=== PATIENT | male | born 1975 | race Caucasian/White ===

== ENCOUNTER 2020-04-01 15:46 | Inpatient (IN) | payer OTHER ==
[~2020-04-01] VITALS: Ht 177.8 cm; Wt 99.8 kg
[2020-04-01 16:01] VITALS: BP 122/79
[2020-04-01 16:38] LABS: ABSOLUTE BASOPHILS 0.1 thou/uL (0.0-0.2); ABSOLUTE LYMPHOCYTES 1.3 thou/uL (0.8-5.3); ABSOLUTE MONOCYTES 1.4 thou/uL (0.0-1.2); ABSOLUTE NEUTROPHILS 12.3 thou/uL (1.6-8.1); BASOPHILS 0.7 %; EOSINOPHILS 0.2 %; HEMATOCRIT 41.5 % (42.0-52.0); HEMOGLOBIN 14.3 gm/dL (14.0-18.0); LYMPHOCYTES 8.8 %; MCH 33.4 pg (26.0-34.0); MCHC 34.5 g/dL (28.0-37.0); MCV 96.9 fL (80.0-100.0); MONOCYTES 9.5 %; MPV 8.9 fl. (7.2-11.1); NUCLEATED RBCS 0 /100WBC; PLATELET COUNT* 180 thou/uL (150-400); POLYS 80.8 %; RBC 4.28 mil/uL (4.50-6.00); RDW-CV 15.7 % (10.5-14.5); WBC 15.2 thou/uL (4.0-11.0)
[2020-04-01 16:51] LABS: CALCIUM 7.8 mg/dL (8.5-10.1)
[2020-04-01 16:54] LABS: POTASSIUM 2.9 mmol/L (3.5-5.1)
[2020-04-01 16:55] LABS: ALBUMIN 1.7 g/dL (3.4-5.0); TOTAL BILIRUBIN 4.9 mg/dL (<0.1-1.0); TOTAL PROTEIN 7.5 g/dL (6.4-8.2)
[2020-04-01 17:27] LABS: URINE BLOOD NEGATIVE (Negative); URINE COLOR YELLOW; URINE GLUCOSE-RANDOM NEGATIVE (Negative); URINE KETONES NEGATIVE (Negative); URINE LEUKOCYTES-REFLEX TRACE (Negative); URINE NITRITE-REFLEX NEGATIVE (Negative); URINE PROTEIN TRACE (Negative); URINE SPECIFIC GRAVITY >= 1.030 (1.005-1.030)
[2020-04-01 17:29] LABS: ICTOTEST (BILI CONFIRMATORY) Positive (Negative); URINE BILIRUBIN 2+ (Negative)
[2020-04-01 17:30] LABS: URINE CLARITY HAZY
[2020-04-01 17:39] LABS: SQUAMOUS >10 Many /LPF (0-3)
[2020-04-01 17:40] LABS: BACTERIA-REFLEX None Seen /HPF (None Seen); CASTS None Seen /LPF (None Seen); CRYSTALS None Seen /LPF (None Seen); URINE RBC None Seen /HPF (0-2); URINE WBC-REFLEX >25 Many /HPF (0-5)
[2020-04-01 23:07] VITALS: BP 109/56
[2020-04-01 23:45] VITALS: BP 120/63
[2020-04-02 04:42] VITALS: BP 111/60
[2020-04-02 05:20] LABS: HEMOGLOBIN 12.6 gm/dL (14.0-18.0); MCH 33.4 pg (26.0-34.0); MCHC 34.1 g/dL (28.0-37.0); MCV 97.9 fL (80.0-100.0); MPV 9.1 fl. (7.2-11.1); RBC 3.78 mil/uL (4.50-6.00); RDW-CV 15.8 % (10.5-14.5); WBC 18.2 thou/uL (4.0-11.0)
[2020-04-02 05:39] LABS: CREATININE 4.3 mg/dL (0.6-1.3); POTASSIUM 3.3 mmol/L (3.5-5.1)
[2020-04-02 07:30] VITALS: BP 113/64
[2020-04-02 07:36] LABS: INR 1.4; PROTIME 14.9 Seconds (9.20-11.50)
[2020-04-02 07:44] LABS: ALBUMIN 1.6 g/dL (3.4-5.0); CALCIUM 7.8 mg/dL (8.5-10.1); CREATININE 4.4 mg/dL (0.6-1.3); POTASSIUM 3.6 mmol/L (3.5-5.1); TOTAL BILIRUBIN 5.4 mg/dL (<0.1-1.0); TOTAL PROTEIN 7.2 g/dL (6.4-8.2)
[2020-04-02 08:48] LABS: % SATURATION 51 % (20-39); IRON 74 ug/dL (50-175)
--- NOTE | 2020-04-02 10:59 | EKG ---
[place] [address] ELECTROCARDIOGRAM REPORT Name: MICHEALANUPAM Ryan Room: [address] ADM IN .R.#: [id number] Admission: 04/01/20 Attend Phys: Doug Rodarte Discharge: Date of : 77 Date of Service: 04/01/20 1624 Report #: [id number] THIS REPORT FOR: //name// [facility] ED Test Date: 2020-04-01 Test Time: 16:24:40 Pat Name: ANUPAM BURTON Department: Room: [facility] Gender: M Portfolio Accountant: [facility] : 1975 Requested By: Anthony Avila Order Number: [id number] MD: Cristhian Sanchez Measurements Intervals [place] Rate: 104 P: 40 CT: 123 QRS: -3 QRSD: 108 T: -11 QT: 410 QTc: 540 Interpretive Statements Sinus tachycardia poor r wave progression Borderline T abnormalities, inferior leads Prolonged QT interval No previous ECG available for comparison Electronically Signed On 04-02-2020 10:59:43 [employer] by Cristhian Sanchez [email or web address] <ELECTRONICALLY SIGNED> By: Cristhian Sanchez MD, [facility] 04/02/20 1059 1624 1624 Cristhian Sanchez MD, [facility] /EPI
[2020-04-02 12:00] VITALS: BP 108/62; BP 154/80
[2020-04-02 15:36] LABS: BF RBC 2858 /mm3; TOTAL CELL COUNT 4658 /mm3
[2020-04-02 15:51] LABS: CLARITY HAZY; TOTAL VOLUME 7560 ml
[2020-04-02 16:00] VITALS: BP 97/47
[2020-04-02 16:03] LABS: BF LYMPHOCYTES 17 %; BF MONOCYTES 1 %; BF POLYS 82 %; SOURCE ASCITES
[2020-04-02 19:50] VITALS: BP 101/50
[2020-04-03] VITALS: BP 109/56
[2020-04-03 04:00] VITALS: BP 114/66
[2020-04-03 04:42] LABS: HEMATOCRIT 37.6 % (42.0-52.0); HEMOGLOBIN 12.9 gm/dL (14.0-18.0); MCH 33.2 pg (26.0-34.0); MCHC 34.3 g/dL (28.0-37.0); MCV 96.7 fL (80.0-100.0); MPV 8.7 fl. (7.2-11.1); RBC 3.88 mil/uL (4.50-6.00); RDW-CV 15.4 % (10.5-14.5)
[2020-04-03 04:46] LABS: INR 1.5; PROTIME 15.7 Seconds (9.20-11.50)
[2020-04-03 04:57] LABS: ALBUMIN 1.9 g/dL (3.4-5.0); CALCIUM 8.1 mg/dL (8.5-10.1); CREATININE 4.3 mg/dL (0.6-1.3); MAGNESIUM 2.2 mg/dL (1.8-2.4); POTASSIUM 3.4 mmol/L (3.5-5.1); TOTAL BILIRUBIN 5.4 mg/dL (<0.1-1.0); TOTAL PROTEIN 6.2 g/dL (6.4-8.2)
[2020-04-03 06:06] LABS: HEPATITIS B SURFACE AG Negative (Negative)
[2020-04-03 08:00] VITALS: BP 96/49
[2020-04-03 12:46] VITALS: BP 91/42
[2020-04-03 16:13] VITALS: BP 93/59
[2020-04-03 20:00] VITALS: BP 114/58
[2020-04-04 00:22] VITALS: BP 112/77
[2020-04-04 04:46] LABS: ALBUMIN 2.5 g/dL (3.4-5.0); MAGNESIUM 2.2 mg/dL (1.8-2.4); TOTAL BILIRUBIN 7.7 mg/dL (<0.1-1.0); TOTAL PROTEIN 6.3 g/dL (6.4-8.2)
[2020-04-04 04:47] LABS: CREATININE 3.2 mg/dL (0.6-1.3)
[2020-04-04 04:52] LABS: INR 1.5; PROTIME 15.4 Seconds (9.20-11.50)
[2020-04-04 05:18] VITALS: BP 106/55
[2020-04-04 05:29] LABS: ABSOLUTE BASOPHILS 0.2 thou/uL (0.0-0.2); ABSOLUTE EOSINOPHILS 0.1 thou/uL (0.0-0.7); ABSOLUTE LYMPHOCYTES 1.7 thou/uL (0.8-5.3); ABSOLUTE MONOCYTES 2.5 thou/uL (0.0-1.2); ABSOLUTE NEUTROPHILS 15.2 thou/uL (1.6-8.1); BASOPHILS 0.8 %; EOSINOPHILS 0.4 %; HEMOGLOBIN 12.2 gm/dL (14.0-18.0); LYMPHOCYTES 8.8 %; MCHC 33.9 g/dL (28.0-37.0); MCV 97.4 fL (80.0-100.0); MONOCYTES 12.6 %; MPV 8.6 fl. (7.2-11.1); NUCLEATED RBCS 0 /100WBC; PLATELET COUNT* 161 thou/uL (150-400); POLYS 77.4 %; RDW-CV 15.4 % (10.5-14.5); WBC 19.6 thou/uL (4.0-11.0)
[2020-04-04 08:00] VITALS: BP 113/63
--- NOTE | 2020-04-04 09:27 | CON ---
[address] [address] CONSULTATION Name: ANUPAM BURTON Room: [address] IN .R.#: [id number] Admission: 04/01/20 Attend Phys: Doug Simpson, Discharge: Date of : 77 Report #: [id number] THIS REPORT FOR: cc: ADRIENNE - No family physician/PCP ADRIENNE - No family physician/PCP ~ Racheal oGnzalez MD DATE OF SERVICE: 04/03/2020 NEPHROLOGY CONSULTATION CONSULTING PHYSICIAN: Dr. Simpson. REASON FOR NEPHROLOGY CONSULTATION: Acute kidney injury. REASON FOR ADMISSION: Abdominal pain. HISTORY OF PRESENT ILLNESS: This is a 44-year-old male with history of alcohol use. He drinks about 1/2 to 3/4th pint of fireball everyday, presented with dark stools, nausea, vomiting, abdominal pain and distention. He was found to have ascites. Imaging showed evidence of portal hypertension and cirrhosis. His hemoglobin stayed relatively stable, but he is supposed to get an endoscopy per GI and GI is following him closely. The patient also takes ibuprofen every other day about 2-3 tablets each time and has been doing that for a long time and does not follow with physicians. His creatinine at admission was 4.4 and it has stayed in that range, it is 4.3 today. He also has leukocytosis and he is being treated for SBP, getting antibiotics as per primary team. He is not feeling well. He is very restless. A 7.6 liters of fluid was drained with paracentesis yesterday. ALLERGIES: No known allergies. REVIEW OF SYSTEMS: As mentioned in the history of present illness, otherwise 10-point review of systems done, negative. FAMILY HISTORY: No history of kidney problems in the family that he knows of. HOME MEDICATIONS: None. PAST MEDICAL AND SURGICAL HISTORY: The patient did not come with any medical history from the past. PHYSICAL EXAMINATION: VITAL SIGNS: Blood pressure is 96/49, respiratory rate is 18, pulse rate 99, temperature is 36.4, pulse ox is 95% on 3 liters of [place] [address] CONSULTATION Name: ANUPAM BURTON Room: [address] IN [facility]#: [id number] Admission: 04/01/20 Attend Phys: Doug Simpson, Discharge: Date of : 77 Report #: [id number] GENERAL: He was very drowsy for me, was able to wake up, but was very restless and does not feel comfortable. HEAD AND THROAT: Atraumatic and normocephalic. Conjunctivae normal. He does have scleral icterus. EARS, NOSE, AND THROAT: Normal ears and nose. Mucous membranes are dry. NECK: There was no JVD. CHEST: Bilaterally clear to auscultation anteriorly. No crackles or wheezing. CARDIOVASCULAR: S1, S2 normal. No murmurs. ABDOMEN: Soft, distended and right upper quadrant tenderness and soft otherwise. LOWER EXTREMITIES: There is no edema. SKIN: Spider nevi all over. NEUROLOGIC: Neurological function is currently drowsy, but he is able to wake up for me. PSYCHIATRIC: Not able to assess. LABORATORY DATA: WBC 21,000, hemoglobin 12.9, platelet count is 175. Sodium 131, potassium is 3.4, BUN is 80, creatinine is 4.3 and other labs were reviewed. IMAGING: Chest x-ray, renal ultrasound and abdomen CT reports were reviewed. ASSESSMENT: 1. Acute kidney injury in the setting of newly diagnosed cirrhosis, alcohol dependence, possible GI bleed and consistent use of NSAIDs. Baseline creatinine is not known. The patient has not been following with physicians and his creatinine has been running 4.3 to 4.4. Hepatorenal syndrome could not be ruled out. He is currently getting albumin. UA did not show any blood. Just trace amount of protein. 2. Hyponatremia in the setting of liver cirrhosis. 3. Hypokalemia. 4. SBP being treated by primary team, large volume paracentesis done on 04/02/2020; 7.6 liters removed. 5. Dark stools, the patient to get an endoscopy. GI is following. 6. Cirrhosis, portal hypertension, alcohol dependence, not a candidate for liver transplant at this time. 7. Right inguinal hernia. Surgery cannot be done because of ascites and high risk. PLAN: 1. From nephrology standpoint, I agree with giving him albumin. I will stop his normal saline because that will increase his ascites. If he does not respond much to albumin, this is in all likelihood hepatorenal syndrome. I agree with octreotide as well. I agree with GI assessment. [address] [place] [address] CONSULTATION Name: ANUPAM BURTON Room: [address] IN M.R.#: [id number] Admission: 04/01/20 Attend Phys: Doug Simpson, Discharge: Date of : 77 Report #: [id number] 1. For his potassium, I have ordered some replacement. I will put him on a fluid restriction at 1.5 liters a day to help with his hyponatremia. 2. Avoid all NSAIDs and nephrotoxic agents and IV contrast. 3. We will continue to follow with you. If his kidney function worsens and he is in need for dialysis, he is currently not a candidate for dialysis because he is not a candidate for liver transplant. Thank you for this consultation. We will continue to follow with you. <ELECTRONICALLY SIGNED> By: Racheal Gonzalez MD 04/04/20 0927 0936 [id number] Gonzalez MD /nt
[2020-04-04 11:07] LABS: BODY FLUID PROTEIN 1.4 g/dL (())
[2020-04-04 11:58] VITALS: BP 104/59
--- NOTE | 2020-04-04 13:52 | 2DMMODE ---
[place] [address] 2 D/M-MODE ECHOCARDIOGRAM Name: BURTONANUPAM Room: [address] IN [facility]#: [id number] Admission: 04/01/20 Attend Phys: Doug Rodarte Discharge: Date of : 77 Date of Service: 04/04/20 1352 Report #: [id number] THIS REPORT FOR: cc: FAM - No family physician/PCP FAM - No family physician/PCP Andres Pascual MD [facility] ~ APPROVED REPORT Study performed: 04/04/2020 11:25:43 EXAM: Comprehensive 2D, Doppler, and color-flow Echocardiogram Patient Location: In-Patient Room #: [facility] Status: routine BSA: 2.15 HR: 100 bpm Rhythm: NSR Other Information Study Quality: Good Indications Congestive Heart Failure 2D Dimensions IVSd: 11.47 (7-11mm) LVOT Diam: 22.93 (18-24mm) LVDd: 53.51 mm PWd: 8.54 (7-11mm) Ascending Ao: 32.60 (22-36mm) LVDs: 34.03 (25-40mm) Aortic Root: 32.74 mm Volumes Left Atrial Volume (Systole) LA ESV Index: 31.60 mL/m2 Aortic Valve AoV Peak Jerson.: 1.80 m/s AO Peak Gr.: 12.91 mmHg LVOT Max P.85 mmHg AO Mean Gr.: 8.56 mmHg LVOT Mean P.39 mmHg LVOT Max V: 1.57 m/s AO V2 VTI: 30.27 cm LVOT Mean V: 0.94 m/s ENDY (VTI): 3.81 cm2 LVOT V1 VTI: 27.97 [place] [address] 2 D/M-MODE ECHOCARDIOGRAM Name: ANUPAM BURTON Room: [address] IN .R.#: [id number] Admission: 04/01/20 Attend Phys: Doug Rodarte Discharge: Date of : 77 Date of Service: 04/04/20 1352 Report #: [id number] Mitral Valve E/A Ratio: 1.43 MV Decel. Time: 223.77 ms MV E Max Jerson.: 0.98 m/s MV PHT: 64.89 ms MVA (PHT): 3.39 cm2 TDI E/Lateral E': 5.16 E/Medial E': 6.53 Medial E' Jerson.: 0.15 m/s Lateral E' Jerson.: 0.19 m/s Pulmonary Valve PV Peak Jerson.: 1.27 m/s PV Peak Gr.: 6.40 mmHg Tricuspid Valve RAP Estimate: 5.00 mmHg TR Peak Gr.: 15.88 mmHg RVSP: 20.00 mmHg PA Pressure: 20.00 mmHg Left Ventricle The left ventricle is normal size. There is normal LV segmental wall motion. There is normal left ventricular wall thickness. Left ventricular systolic function is normal. LVEF is 60-65%. The left ventricular diastolic function is normal. Right Ventricle The right ventricle is normal size. The right ventricular systolic function is normal. Atria The left atrium size is normal. The right atrium size is normal. Aortic Valve The aortic valve is normal in structure. No aortic regurgitation is present. There is no aortic valvular stenosis. Mitral Valve The mitral valve is normal in structure. Trace mitral regurgitation. No evidence of mitral valve stenosis. Tricuspid Valve The tricuspid valve is normal in structure. No pulmonary hypertension. Trace [place] [address] 2 D/M-MODE ECHOCARDIOGRAM Name: BURTONANUPAM Room: [address] IN [facility]#: [id number] Admission: 04/01/20 Attend Phys: Doug Rodarte Discharge: Date of : 77 Date of Service: 04/04/20 1352 Report #: [id number] Pulmonic Valve The pulmonary valve is normal in structure. There is no pulmonic valvular regurgitation. Great Vessels The aortic root is normal in size. IVC is not well visualized. Pericardium There is no pericardial effusion. <Conclusion> The left ventricle is normal size. There is normal left ventricular wall thickness. Left ventricular systolic function is normal. LVEF is 60-65%. The left ventricular diastolic function is normal. Trace mitral regurgitation. No pulmonary hypertension. Trace tricuspid regurgitation. <ELECTRONICALLY SIGNED> By: Andres Pascual MD, FACC 04/04/20 1352 1352 135 Andres Pascual MD, FACC /INF
[2020-04-04 15:24] LABS: URINE BILIRUBIN NEGATIVE (Negative); URINE BLOOD 2+ (Negative); URINE CLARITY CLEAR; URINE COLOR YELLOW; URINE GLUCOSE-RANDOM NEGATIVE (Negative); URINE KETONES NEGATIVE (Negative); URINE LEUKOCYTES-REFLEX TRACE (Negative); URINE NITRITE-REFLEX NEGATIVE (Negative); URINE PROTEIN NEGATIVE (Negative); URINE UROBILINOGEN 0.2 E.U./dl (0.2-1.0)
[2020-04-04 15:30] LABS: SQUAMOUS 0-3 Few /LPF (0-3); URINE RBC 3-10 Few /HPF (0-2); URINE WBC-REFLEX 0-5 Rare /HPF (0-5)
[2020-04-04 15:31] LABS: CASTS None Seen /LPF (None Seen); CRYSTALS None Seen /LPF (None Seen); MUCUS 0-3 Light strn/LPF (None Seen)
[2020-04-04 16:30] VITALS: BP 110/66
[2020-04-04 18:16] LABS: CALCIUM 8.4 mg/dL (8.5-10.1); CREATININE 2.2 mg/dL (0.6-1.3); MAGNESIUM 2.1 mg/dL (1.8-2.4); POTASSIUM 3.1 mmol/L (3.5-5.1)
[2020-04-04 19:50] VITALS: BP 120/60
[2020-04-05 00:09] VITALS: BP 120/76
[2020-04-05 04:14] LABS: ABSOLUTE BASOPHILS 0.1 thou/uL (0.0-0.2); ABSOLUTE EOSINOPHILS 0.1 thou/uL (0.0-0.7); ABSOLUTE LYMPHOCYTES 1.5 thou/uL (0.8-5.3); ABSOLUTE MONOCYTES 2.3 thou/uL (0.0-1.2); ABSOLUTE NEUTROPHILS 13.3 thou/uL (1.6-8.1); BASOPHILS 0.8 %; EOSINOPHILS 0.4 %; HEMOGLOBIN 12.2 gm/dL (14.0-18.0); LYMPHOCYTES 8.9 %; MCH 33.4 pg (26.0-34.0); MCHC 33.9 g/dL (28.0-37.0); MCV 98.6 fL (80.0-100.0); MONOCYTES 13.3 %; MPV 8.7 fl. (7.2-11.1); NUCLEATED RBCS 0 /100WBC; PLATELET COUNT* 114 thou/uL (150-400); POLYS 76.6 %; RBC 3.65 mil/uL (4.50-6.00); RDW-CV 15.3 % (10.5-14.5); WBC 17.3 thou/uL (4.0-11.0)
[2020-04-05 04:44] LABS: ALBUMIN 3.1 g/dL (3.4-5.0); CALCIUM 8.5 mg/dL (8.5-10.1); CREATININE 1.8 mg/dL (0.6-1.3); PHOSPHORUS* 3.4 mg/dL (2.5-4.9); TOTAL BILIRUBIN 9.9 mg/dL (<0.1-1.0); TOTAL PROTEIN 6.4 g/dL (6.4-8.2)
[2020-04-05 04:48] VITALS: BP 130/77
[2020-04-05 07:30] VITALS: BP 107/60
[2020-04-05 10:54] LABS: BF RBC 39752 /mm3; TOTAL CELL COUNT 1805 /mm3
[2020-04-05 10:54] LABS: CALCIUM 8.8 mg/dL (8.5-10.1); CREATININE 1.4 mg/dL (0.6-1.3); POTASSIUM 3.1 mmol/L (3.5-5.1)
[2020-04-05 10:55] LABS: TOTAL VOLUME 2300 ml
[2020-04-05 10:56] LABS: CLARITY TURBID; SOURCE ASCITES
[2020-04-05 10:58] LABS: MAGNESIUM 1.9 mg/dL (1.8-2.4); PHOSPHORUS* 3.2 mg/dL (2.5-4.9)
[2020-04-05 11:00] VITALS: BP 146/78
[2020-04-05 11:19] LABS: BF LYMPHOCYTES 25 %; BF MONOCYTES 4 %; BF POLYS 71 %
[2020-04-05 16:00] VITALS: BP 143/71
[2020-04-05 20:00] VITALS: BP 105/51
[2020-04-06] VITALS: BP 110/62
[2020-04-06 04:00] VITALS: BP 126/73
[2020-04-06 04:18] LABS: ABSOLUTE BASOPHILS 0.1 thou/uL (0.0-0.2); ABSOLUTE EOSINOPHILS 0.1 thou/uL (0.0-0.7); ABSOLUTE LYMPHOCYTES 1.6 thou/uL (0.8-5.3); ABSOLUTE NEUTROPHILS 12.7 thou/uL (1.6-8.1); BASOPHILS 0.4 %; EOSINOPHILS 0.8 %; HEMATOCRIT 36.6 % (42.0-52.0); HEMOGLOBIN 12.4 gm/dL (14.0-18.0); LYMPHOCYTES 9.9 %; MCH 33.4 pg (26.0-34.0); MCHC 33.8 g/dL (28.0-37.0); MCV 98.8 fL (80.0-100.0); MPV 8.9 fl. (7.2-11.1); NUCLEATED RBCS 0 /100WBC; PLATELET COUNT* 89 thou/uL (150-400); POLYS 76.9 %; RBC 3.71 mil/uL (4.50-6.00); RDW-CV 15.9 % (10.5-14.5); WBC 16.5 thou/uL (4.0-11.0)
[2020-04-06 04:49] LABS: ALBUMIN 3.5 g/dL (3.4-5.0); CALCIUM 8.1 mg/dL (8.5-10.1); MAGNESIUM 1.6 mg/dL (1.8-2.4); POTASSIUM 3.2 mmol/L (3.5-5.1); TOTAL BILIRUBIN 10.7 mg/dL (<0.1-1.0); TOTAL PROTEIN 6.9 g/dL (6.4-8.2)
[2020-04-06 08:30] VITALS: BP 112/68
[2020-04-06 08:45] VITALS: BP 112/68
[2020-04-06 11:00] VITALS: BP 126/73
[2020-04-06 20:00] VITALS: BP 145/81
[2020-04-07] VITALS: BP 99/56
[2020-04-07 04:00] VITALS: BP 116/75
[2020-04-07 08:00] VITALS: BP 113/69
[2020-04-07 11:50] LABS: ABSOLUTE LYMPHOCYTES 0.7 thou/uL (0.8-5.3); ABSOLUTE MONOCYTES 2.2 thou/uL (0.0-1.2); ABSOLUTE NEUTROPHILS 14.7 thou/uL (1.6-8.1); BASOPHILS 0.2 %; HEMATOCRIT 33.4 % (42.0-52.0); HEMOGLOBIN 11.4 gm/dL (14.0-18.0); LYMPHOCYTES 4.1 %; MCH 33.8 pg (26.0-34.0); MCHC 34.1 g/dL (28.0-37.0); MCV 99.2 fL (80.0-100.0); MONOCYTES 12.6 %; MPV 9.6 fl. (7.2-11.1); NUCLEATED RBCS 0 /100WBC; PLATELET COUNT* 61 thou/uL (150-400); POLYS 83.1 %; RBC 3.37 mil/uL (4.50-6.00); RDW-CV 15.7 % (10.5-14.5); WBC 17.7 thou/uL (4.0-11.0)
[2020-04-07 11:57] LABS: CALCIUM 8.5 mg/dL (8.5-10.1); POTASSIUM 3.2 mmol/L (3.5-5.1)
[2020-04-07 12:00] VITALS: BP 119/46
[2020-04-07 16:00] VITALS: BP 122/75
[2020-04-07 20:00] VITALS: BP 110/67
[2020-04-07 21:09] LABS: URINE BILIRUBIN 1+ (Negative); URINE BLOOD TRACE (Negative); URINE CLARITY CLEAR; URINE COLOR DARK YELLOW; URINE GLUCOSE-RANDOM NEGATIVE (Negative); URINE KETONES NEGATIVE (Negative); URINE LEUKOCYTES-REFLEX NEGATIVE (Negative); URINE NITRITE-REFLEX NEGATIVE (Negative); URINE PROTEIN TRACE (Negative); URINE SPECIFIC GRAVITY 1.015 (1.005-1.030); URINE UROBILINOGEN 0.2 E.U./dl (0.2-1.0)
[2020-04-07 21:11] LABS: ICTOTEST (BILI CONFIRMATORY) Positive (Negative)
[2020-04-08] VITALS: BP 106/61
[2020-04-08 04:00] VITALS: BP 117/73
[2020-04-08 04:23] LABS: HEMATOCRIT 34.3 % (42.0-52.0); HEMOGLOBIN 11.6 gm/dL (14.0-18.0); MCH 33.8 pg (26.0-34.0); MCHC 33.9 g/dL (28.0-37.0); MCV 99.6 fL (80.0-100.0); MPV 9.3 fl. (7.2-11.1); RBC 3.44 mil/uL (4.50-6.00); WBC 18.1 thou/uL (4.0-11.0)
[2020-04-08 04:47] LABS: ALBUMIN 3.6 g/dL (3.4-5.0); CREATININE 0.9 mg/dL (0.6-1.3); MAGNESIUM 1.3 mg/dL (1.8-2.4); POTASSIUM 3.4 mmol/L (3.5-5.1); TOTAL BILIRUBIN 9.2 mg/dL (<0.1-1.0); TOTAL PROTEIN 6.9 g/dL (6.4-8.2)
[2020-04-08 08:00] VITALS: BP 100/53
[2020-04-08 11:40] VITALS: BP 123/68
[2020-04-08 20:00] VITALS: BP 114/65
[2020-04-08 23:44] VITALS: BP 135/76
[2020-04-09 04:39] LABS: HEMATOCRIT 34.5 % (42.0-52.0); HEMOGLOBIN 11.8 gm/dL (14.0-18.0); MCH 33.7 pg (26.0-34.0); MCV 99.1 fL (80.0-100.0); MPV 10.1 fl. (7.2-11.1); RBC 3.49 mil/uL (4.50-6.00); RDW-CV 16.1 % (10.5-14.5); WBC 16.6 thou/uL (4.0-11.0)
[2020-04-09 05:01] LABS: ALBUMIN 3.3 g/dL (3.4-5.0); CALCIUM 7.8 mg/dL (8.5-10.1); CREATININE 0.8 mg/dL (0.6-1.3); MAGNESIUM 1.2 mg/dL (1.8-2.4); POTASSIUM 3.3 mmol/L (3.5-5.1); TOTAL BILIRUBIN 9.6 mg/dL (<0.1-1.0); TOTAL PROTEIN 6.5 g/dL (6.4-8.2)
[2020-04-09 08:00] VITALS: BP 105/50
--- NOTE | 2020-04-09 12:07 | PATH ---
[address] [address] PATHOLOGY RPT PROCEDURE Name: ANUPAM BURTON Room: [address] IN [facility]#: [id number] Admission: 04/01/20 Date of : 77 Discharge: Report #: [id number] Path Case #: [id number] Note [facility] Accession Number: [id number] TESTS RESULT FLAG UNITS REF RANGE LAB Clinician Provided Cytology Information No. of containers..01 Other (Miscellaneous) Source: PERITONEAL FLUID DIAGNOSIS: 02 PERITONEAL FLUID NEGATIVE FOR MALIGNANT CELLS. LOW CELLULARITY WITH RARE MESOTHELIAL CELLS AND PREDOMINANTLY RBCs AND INFLAMMATORY CELLS. THIS INTERPRETATION INCLUDES EVALUATION OF A CELL BLOCK. Signed out by: 02 Carlos Mena MD, Pathologist NPI- [id number] Performed by: 01 Kelly Ward, Before And After School Daycare Worker ([facility]) Gross description: 01 5ML, YELLOW/RED, 1TP 1CB /LCS 04/08/2020 0730 Local FLAG LEGEND: L-Low Normal,H-High Normal,LL-Alert Low,HH-Alert High <-Panic Low,>-Panic High,A-Abnormal,AA-Critical Abnormal Performed at: 01 [facility] [address] [place] [address] Aly Powell MD, [address] [address] Carlos Mena MD, Specimen Comment: A courtesy copy of this report has been sent to [phone] Specimen Comment: Report sent to Performed at: 01 [facility] [address], [place], [place] [id number] MD Aly Powell MD Phone: [phone]
--- NOTE | 2020-04-09 14:51 | CON ---
[address] [address] CONSULTATION Name: ANUPAM BURTON Room: [address] IN M.R.#: [id number] Admission: 04/01/20 Attend Phys: Doug Simpson, Discharge: Date of : 77 Report #: [id number] THIS REPORT FOR: cc: ADRIENNE - No family physician/PCP ADRIENNE - No family physician/PCP ~ Vitor Palacio MD DATE OF SERVICE: 04/04/2020 REQUESTING PHYSICIAN: Doug Simpson MD INDICATION FOR CONSULTATION: Respiratory failure/suspicion of interstitial lung disease. HISTORY OF PRESENT ILLNESS: This is a 44-year-old gentleman, past medical history is unremarkable. The patient, however, has a history of heavy alcohol intake as well as smoking and it does appear to me that the patient has chronic liver disease/cirrhosis as well as COPD, previously undiagnosed. He was actively smoking and having significant amounts of alcohol until just a few days ago. The patient is now admitted with abdominal pain. He also did have nausea, vomiting and diarrhea initially, he has marked abdominal distention. He has had some blood in the stool as well. The patient was evaluated by GI as well as the Nephrology service. He was noted to have hepatorenal syndrome. He is in acute renal failure, creatinine has ranged from 4.0-3.2. He has had large volume paracentesis performed. He has also been treated with albumin and did receive IV fluids as well initially The patient has had increase in shortness of breath. Currently, he is requiring supplemental oxygen to maintain O2 saturation. He at the time of my evaluation was saturating 90% on 2.5 liters oxygen via nasal cannula. The patient has been needing significant amounts of Ativan as well and the patient was somnolent at the time of my evaluation. He therefore was not able to provide a further history or review of systems. PAST MEDICAL HISTORY: He did not report any past medical history; however, please see discussion above. SOCIAL HISTORY: Heavy alcohol intake. Active smoker, has been smoking for several decades. No known history of illegal drug use. CURRENT MEDICATIONS: List in [employer] reviewed. HOME MEDICATIONS: [place] [address] CONSULTATION Name: ANUPAM BURTON Connor Room: [address]#: [id number] Admission: 04/01/20 Attend Phys: Doug Simpson, Discharge: Date of : 77 Report #: [id number] FAMILY HISTORY: No pertinent family history. ALLERGIES: No known drug allergies. PHYSICAL EXAMINATION: GENERAL: He is markedly somnolent. He is arousable. VITAL SIGNS: Has a pulse of 98 and a blood pressure of 104/59. He was saturating 90% on 2.5 liters nasal cannula. He was mildly tachypneic with respiratory rate around 22-24. He has a low-grade temperature of 37.2. HEENT: Head is normocephalic and atraumatic. Pupils are equal and reactive. There is no throat erythema. There is no thrush in his throat. NECK: Does not show raised JVP, asymmetry, mass or lymph nodes. CHEST: Symmetrical expansion on inspection and palpation. On auscultation, breath sounds are bilaterally equal, but decreased. I do not hear any added sounds. HEART: Regular. There is no murmur. ABDOMEN: Markedly distended. There is diffuse discomfort on palpation of the abdomen. EXTREMITIES: Lower extremities show no edema, no calf tenderness. SKIN: Dry and intact. NEUROLOGICAL: Mental status as above. He moves all extremities bilaterally equally and spontaneously. I did not identify any focal deficit. LABORATORY DATA: The patient's chest x-rays from yesterday is reviewed. Certainly interstitial lung disease can also give this picture; however, it appears to me that it is more likely that this is secondary to mild increase in pulmonary vascular congestion. It is possible that the patient also has some pleural effusions, which are not fully evident on this x-ray. At least there is a small pleural effusion on the left side. I do not identify one on the right, but it will still be possible. The patient's lab work is in [employer] and is reviewed. ASSESSMENT AND PLAN: 1. Acute hypoxemic respiratory failure. The patient has previously not require oxygen and is now saturating 90% on 2.5 liters nasal cannula. I feel that the primary etiology of the patient's respiratory failure is severe ascites. Certainly there is mild increase in pulmonary vascular congestion on the chest x-ray as well; however, I understand the patient needs to be kept well resuscitated and I do not feel that this is playing a major role in his respiratory status. It also does appear that he likely has underlying chronic obstructive pulmonary disease. Further, the patient has been requiring Ativan for alcohol withdrawal, which is also contributing to his respiratory failure and interstitial lung disease will be possible; however, it to me appears to be [address] [address] CONSULTATION Name: ANUPAM BURTON Room: [address] IN M.R.#: [id number] Admission: 04/01/20 Attend Phys: Doug Simpson, Discharge: Date of : 77 Report #: [id number]. 2. Severe ascites as this is compromising his respiratory status, I did call and discuss with Dr. Gonzalez and we both agreed that the patient will benefit from a paracentesis. I did go ahead and therefore, requested the same for tomorrow. We will check with the GI service if repeat analysis on the ascitic fluid is desired. The patient is getting 25 grams of albumin q.6 hours already. I ordered an additional 25 grams for when he has a paracentesis. Depending on the amount of fluid that is removed, it is possible that the patient needs a larger amount of albumin when the paracentesis is performed. 3. Mild fluid overload/acute renal failure. I do not feel that fluid overload by itself is playing a major role in his respiratory failure. It is more the ascites. Therefore, I agree with keeping him well hydrated, considering that he is in acute renal failure. Defer management of a scheduled albumin to the Nephrology service. I suspect that his potassium will still below this evening. If I will go ahead and repeat labs this evening and if the potassium is low, then I will defer to the Nephrology if it is replaced a further. 4. Chronic liver disease/cirrhosis/possible spontaneous bacterial peritonitis. The patient is on both Zosyn and meropenem. I would defer how broadly we cover to the other services; however, it did not appear that we need to continue both so I discontinued Zosyn for now. 5. Alcohol withdrawal. Ativan is playing a role in compromising his respiratory status; however, I feel that he does need it at this time due to alcohol withdrawal, should his respiratory status worsen, then we potentially could transfer him to the ICU in that case and start a Precedex drip instead. 6. Hypotension. Albumin is already ordered by other services as above. We will also go ahead and start him on midodrine. 7. Rule out interstitial lung disease/possible small pleural effusions, suspicion of interstitial lung disease is low. Potentially a CT chest can be considered later. I did order a chest x-ray as above. Thanks for this consultation. <ELECTRONICALLY SIGNED> By: Vitor Palacio MD 04/09/20 1451 1548 1630Vitor Palacio MD /nt
[2020-04-09 16:58] VITALS: BP 125/71
[2020-04-09 20:00] VITALS: BP 113/62
[2020-04-09 20:00] LABS: CALCIUM 7.9 mg/dL (8.5-10.1); CREATININE 0.6 mg/dL (0.6-1.3); MAGNESIUM 1.7 mg/dL (1.8-2.4); POTASSIUM 3.4 mmol/L (3.5-5.1)
[2020-04-10 06:17] LABS: ABSOLUTE EOSINOPHILS 0.1 thou/uL (0.0-0.7); ABSOLUTE LYMPHOCYTES 1.9 thou/uL (0.8-5.3); ABSOLUTE MONOCYTES 1.5 thou/uL (0.0-1.2); ABSOLUTE NEUTROPHILS 13.1 thou/uL (1.6-8.1); BASOPHILS 0.3 %; EOSINOPHILS 0.9 %; HEMATOCRIT 34.8 % (42.0-52.0); HEMOGLOBIN 11.7 gm/dL (14.0-18.0); LYMPHOCYTES 11.1 %; MCH 33.4 pg (26.0-34.0); MCHC 33.5 g/dL (28.0-37.0); MCV 99.6 fL (80.0-100.0); MONOCYTES 9.2 %; NUCLEATED RBCS 0 /100WBC; PLATELET COUNT* 81 thou/uL (150-400); POLYS 78.5 %; RBC 3.49 mil/uL (4.50-6.00); RDW-CV 16.2 % (10.5-14.5); WBC 16.7 thou/uL (4.0-11.0)
[2020-04-10 06:30] LABS: ALBUMIN 3.2 g/dL (3.4-5.0); CALCIUM 7.8 mg/dL (8.5-10.1); CREATININE 0.6 mg/dL (0.6-1.3); MAGNESIUM 1.7 mg/dL (1.8-2.4); POTASSIUM 3.8 mmol/L (3.5-5.1); TOTAL BILIRUBIN 10.4 mg/dL (<0.1-1.0); TOTAL PROTEIN 6.2 g/dL (6.4-8.2)
[2020-04-10 08:47] VITALS: BP 113/60
[2020-04-10 16:45] VITALS: BP 131/76
[2020-04-10 20:55] VITALS: BP 104/52
[2020-04-11 00:10] VITALS: BP 109/62
[2020-04-11 04:30] LABS: HEMATOCRIT 32.8 % (42.0-52.0); HEMOGLOBIN 11.1 gm/dL (14.0-18.0); MCH 33.8 pg (26.0-34.0); MCHC 33.9 g/dL (28.0-37.0); MCV 99.6 fL (80.0-100.0); MPV 9.6 fl. (7.2-11.1); RBC 3.29 mil/uL (4.50-6.00); RDW-CV 16.4 % (10.5-14.5); WBC 17.7 thou/uL (4.0-11.0)
[2020-04-11 04:44] LABS: ALBUMIN 3.1 g/dL (3.4-5.0); CALCIUM 7.8 mg/dL (8.5-10.1); CREATININE 0.7 mg/dL (0.6-1.3); MAGNESIUM 1.5 mg/dL (1.8-2.4); POTASSIUM 3.5 mmol/L (3.5-5.1); TOTAL PROTEIN 6.4 g/dL (6.4-8.2)
[2020-04-11 05:54] LABS: INR 1.6; PROTIME 16.7 Seconds (9.20-11.50)
[2020-04-11 07:45] VITALS: BP 115/67
[2020-04-11 12:33] LABS: URINE BLOOD NEGATIVE (Negative); URINE CLARITY CLEAR; URINE COLOR YELLOW; URINE GLUCOSE-RANDOM NEGATIVE (Negative); URINE KETONES NEGATIVE (Negative); URINE LEUKOCYTES-REFLEX TRACE (Negative); URINE NITRITE-REFLEX NEGATIVE (Negative); URINE PROTEIN NEGATIVE (Negative); URINE UROBILINOGEN 0.2 E.U./dl (0.2-1.0)
[2020-04-11 12:36] LABS: ICTOTEST (BILI CONFIRMATORY) Positive (Negative); URINE BILIRUBIN 1+ (Negative)
[2020-04-11 12:45] LABS: CRYSTALS None Seen /LPF (None Seen); HYALINE CASTS 4-10 Moderate /LPF (None Seen); MUCUS >6 Heavy strn/LPF (None Seen); SQUAMOUS 4-10 Moderate /LPF (0-3); URINE RBC 0-2 Rare /HPF (0-2); URINE WBC-REFLEX 6-15 Few /HPF (0-5)
[2020-04-11 16:40] VITALS: BP 105/60
[2020-04-11 20:12] VITALS: BP 115/61
[2020-04-12 05:12] LABS: HEMATOCRIT 32.7 % (42.0-52.0); HEMOGLOBIN 11.1 gm/dL (14.0-18.0); MCH 33.8 pg (26.0-34.0); MCV 99.4 fL (80.0-100.0); MPV 9.9 fl. (7.2-11.1); RBC 3.29 mil/uL (4.50-6.00); RDW-CV 16.3 % (10.5-14.5); WBC 17.2 thou/uL (4.0-11.0)
[2020-04-12 05:35] LABS: CALCIUM 7.8 mg/dL (8.5-10.1); CREATININE 0.6 mg/dL (0.6-1.3); MAGNESIUM 1.3 mg/dL (1.8-2.4); TOTAL BILIRUBIN 9.2 mg/dL (<0.1-1.0); TOTAL PROTEIN 6.3 g/dL (6.4-8.2)
[2020-04-12 07:35] VITALS: BP 124/68
[2020-04-12] MEDS ORDERED: OMEPRAZOLE40 MG PO (08:02)
[2020-04-12] MEDS ORDERED: MIDODRINE HCL 55 M1 PO (08:02)
[2020-04-12] MEDS ORDERED: ALDACTONE100 MG PO (08:02)
[2020-04-12] MEDS ORDERED: LACTULOSE20 GM/30 M PO (08:02)
[2020-04-12] MEDS ORDERED: XIFAXAN550 M1 PO (08:02)
[2020-04-12] MEDS ORDERED: LASIX 40 MG TAB40 M1 PO (08:02)
[2020-04-12 14:32] VITALS: BP 124/68
[2020-04-12 15:45] VITALS: BP 124/68
== END 2020-04-12 15:40 | disposition home or self-care (01) | DRG 871 ==
LOC: M.ERS 15:46 → M.2W 17:28 → M.TBA-ER 17:28 → M.2W 23:13 → M.3W 04-09 19:50
PROVIDERS: Family Medicine; Internal Medicine; Internal Medicine Critical Care Medicine; Internal Medicine Gastroenterology; ADMIT Family Medicine; ATTEND Family Medicine
PROC: 0W9G3ZZ Drainage of Peritoneal Cavity, Percutaneous Approach (ICD-10-PCS; principal; 2020-04-02)
PROC: 0DJ08ZZ Inspection of Upper Intestinal Tract, Via Natural or Artificial Opening Endoscopic (ICD-10-PCS; 2020-04-03)
PROC: 0W9G3ZZ Drainage of Peritoneal Cavity, Percutaneous Approach (ICD-10-PCS; 2020-04-05)
DX: A41.9 Sepsis, unspecified organism (principal); K72.00 Acute and subacute hepatic failure without coma; E43 Unspecified severe protein-calorie malnutrition; J96.01 Acute respiratory failure with hypoxia; K65.2 Spontaneous bacterial peritonitis; N17.0 Acute kidney failure with tubular necrosis; E87.1 Hypo-osmolality and hyponatremia; K92.1 Melena; K76.6 Portal hypertension; N39.0 Urinary tract infection, site not specified; Y90.9 Presence of alcohol in blood, level not specified; E87.6 Hypokalemia; K70.31 Alcoholic cirrhosis of liver with ascites; F10.20 Alcohol dependence, uncomplicated; N18.9 Chronic kidney disease, unspecified; R16.1 Splenomegaly, not elsewhere classified; K40.90 Unilateral inguinal hernia, without obstruction or gangrene, not specified as recurrent; I95.9 Hypotension, unspecified; F17.210 Nicotine dependence, cigarettes, uncomplicated; E66.01 Morbid (severe) obesity due to excess calories; Z20.828 Contact with and (suspected) exposure to other viral communicable diseases; Z68.31 Body mass index [BMI] 31.0-31.9, adult; Z28.21 Immunization not carried out because of patient refusal